=== PATIENT | female | born 1950 | race Two or more races ===

== ENCOUNTER 2016-11-22 17:30 | Emergency (ER) | payer OTHER ==
[~2016-11-22] VITALS: Ht 149.9 cm; Wt 49.0 kg
[2016-11-22 17:43] VITALS: BP 131/71
== END 2016-11-22 17:58 | disposition home or self-care (01) ==
LOC: ER 17:32
DX: H61.21 Impacted cerumen, right ear (principal); Z88.0 Allergy status to penicillin
CPT/HCPCS: A4606; Z7502; Z7610

== ENCOUNTER 2023-04-16 19:57 | Emergency (ER) | payer MEDICARE, OTHER ==
[~2023-04-16] VITALS: Ht 160 cm; Wt 59.0 kg
[2023-04-16 21:32] LABS: CALCIUM, SERUM 9.6 mg/dL (8.5-10.1); CARBON DIOXIDE 22 mmol/L (21-32); CHLORIDE 103 mmol/L (98-107); CREATININE 0.8 mg/dL (0.6-1.3); GLUCOSE 174 mg/dL (74-106); POTASSIUM 3.3 mmol/L (3.5-5.1); SODIUM SERUM 140 mmol/L (136-145); UREA NITROGEN, BLOOD 22 mg/dL (7-18)
[2023-04-16 21:37] LABS: ALANINE AMINOTRANSFERASE 31 U/L (12-78); ALBUMIN 3.6 g/dL (3.4-5.0); ALKALINE PHOSPHATASE 94 U/L (46-116); ASPARTATE AMINOTRANSFERASE 40 U/L (15-37); BILIRUBIN,TOTAL 0.3 mg/dL (0.2-1.0); TOTAL PROTEIN, SERUM 7.5 g/dL (6.4-8.2)
[2023-04-16] MEDS ORDERED: MECLIZINE HCL 25 MG TABLET ONE (21:54)
[2023-04-16] MEDS ORDERED: METOCLOPRAMIDE HCL 10 MG/2 ML VIAL ONE (21:54)
[2023-04-16] MEDS ORDERED: IV NS 0.9% 1,000 ML BAG IV ONE (22:00)
[2023-04-16] MEDS ORDERED: MECLIZINE HCL 12.5 MG TABLET PO ONE (22:00)
[2023-04-16] MEDS ORDERED: METOCLOPRAMIDE HCL 10 MG/2 ML VIAL IV ONE (22:00)
[2023-04-16] MEDS ORDERED: MECL-159 PO (22:07)
[2023-04-16 22:08] LABS: BASOPHILS % (AUTO) 0.4 % (0.0-2.0); EOSINOPHILS # (AUTO) 0.2 K/uL (0.0-0.7); EOSINOPHILS % (AUTO) 1.4 % (0.0-6.0); HEMATOCRIT 43 % (33-45); HEMOGLOBIN 13.8 g/dL (11.5-14.8); LYMPHOCYTES # (AUTO) 1.4 K/uL (0.8-4.8); LYMPHOCYTES % (AUTO) 12.9 % (20.0-44.0); MEAN CORPUSCULAR HEMOGLOBIN 30 PG (26.0-33.0); MEAN CORPUSCULAR HGB CONC 32 g/dl (31.0-36.0); MEAN CORPUSCULAR VOLUME 92 fL (82-100); MONOCYTES # (AUTO) 0.4 K/uL (0.1-1.30); MONOCYTES % (AUTO) 3.9 % (2.0-12.0); NEUTROPHILS % (AUTO) 81.4 % (43.0-81.0); PLATELET COUNT (AUTO) 204 K/uL (150-450); RED BLOOD CELL COUNT(AUTO) 4.64 MIL/uL (4.0-5.2); WHITE BLOOD COUNT (AUTO) 11.1 K/uL (4.3-11.0)
[2023-04-16 22:25] LABS: INR 0.99 (0.91-1.10); PARTIAL THROMBOPLASTIN TIME 23.6 SEC (24.3-34.3); PROTHROMBIN TIME 10.5 SECS (9.2-11.1)
[2023-04-17 00:56] VITALS: BP 144/63; TEMP 97.7; O2SAT 97
== END 2023-04-17 00:56 | disposition home or self-care (01) ==
LOC: ER 20:12
DX: R42 Dizziness and giddiness (principal); Z88.0 Allergy status to penicillin
CPT/HCPCS: 99285; 96374; 70450; 71045; 96361; 93005; 85025; 80048; 80076; 36415; 84484; 85730; J8597; J2765; J7030